=== PATIENT | male | born 1975 | race African-American/Black ===

== ENCOUNTER 2022-04-03 10:04 | Outpatient (CLI) | payer BC ==
[2022-04-03 14:12] LABS: Thyroid Stimulating Hormone 3.221 uIU/mL (0.35-4.94)
[2022-04-03 16:55] LABS: Free T4 (Free Thyroxine) 0.74 ng/dL (0.70-1.48)
== END 2022-04-03 10:05 | disposition home or self-care (01) ==
LOC: MADLABBHPM 10:04 → MADLAB 10:05
PROVIDERS: ATTEND Family Medicine
DX: E89.0 Postprocedural hypothyroidism (principal)
CPT/HCPCS: 84439; 84443